=== PATIENT | female | born 1990 | race Caucasian/White ===

== ENCOUNTER 2020-06-01 11:11 | Emergency (ER) | payer OTHER ==
[~2020-06-01] VITALS: Ht 160 cm; Wt 56.7 kg
[2020-06-01 11:47] LABS: URINE BILIRUBIN NEGATIVE (Negative); URINE BLOOD 1+ (Negative); URINE CLARITY SL CLOUDY; URINE COLOR YELLOW; URINE GLUCOSE-RANDOM* NEGATIVE (Negative); URINE KETONES NEGATIVE (Negative); URINE LEUKOCYTES-REFLEX 2+ (Negative); URINE NITRITE-REFLEX POSITIVE (Negative); URINE PROTEIN (DIPSTICK) NEGATIVE (Negative)
[2020-06-01 11:56] LABS: CASTS None Seen /LPF (None Seen); SQUAMOUS >10 Many /LPF (0-3)
[2020-06-01 11:59] LABS: BACTERIA-REFLEX 1-9 Few /HPF (None Seen); CRYSTALS None Seen /LPF (None Seen); URINE RBC 0-2 Rare /HPF (0-2)
[2020-06-01] MEDS ORDERED: BACTRIM DS TAB1 EACH PO (13:28)
[2020-06-01 13:57] VITALS: BP 110/62
== END 2020-06-01 13:57 | disposition home or self-care (01) ==
LOC: ER 11:11
PROVIDERS: Emergency Medicine
DX: N30.90 Cystitis, unspecified without hematuria (principal); N94.10 Unspecified dyspareunia; F17.210 Nicotine dependence, cigarettes, uncomplicated; Z88.0 Allergy status to penicillin